=== PATIENT | female | born 1980 | race Caucasian/White ===

== ENCOUNTER → 2017-11-02 | Outpatient (CLI) | payer BC ==
--- NOTE | 2017-11-02 11:49 | US ---
EXAMINATION TYPE: US abdomen complete DATE OF EXAM: 11/02/2017 COMPARISON: NONE CLINICAL HISTORY: Abd Pain R10.9. Intermittent epigastric pain x couple weeks EXAM MEASUREMENTS: Liver Length: 14.0 cm Gallbladder Wall: 0.2 cm CBD: 0.3 cm Spleen: 10.5 cm Right Kidney: 12.0 x 4.3 x 5.9 cm Left Kidney: 11.1 x 5.0 x 5.3 cm Pancreas: visualized portions wnl, head and tail obscured by overlying midline bowel gas Liver: wnl Gallbladder: wnl Evidence for sonographic Panda's sign: yes CBD: visualized portions wnl, limited distally at panc head by overlying bowel gas Spleen: visualized portions wnl, limited by rib shadowing and overlying bowel gas Right Kidney: multiple echogenic foci, largest measuring 0.4cm inferior pole Left Kidney: visualized portions wnl, limited by rib shadowing and overlying bowel gas Upper IVC: wnl Abd Aorta: visualized portions wnl, mid portion obscured by overlying midline bowel gas The liver is homogenous. The intrahepatic portion of the IVC and proximal abdominal aorta are within normal limits. There is no evidence of cholelithiasis. Common bile duct is unremarkable. The visu alized portions of the pancreas are homogenous. The spleen is unremarkable. Kidneys are symmetric a nd free of hydronephrosis. No renal lesions are seen. IMPRESSION: 1. Limited study. Nonobstructing calculi right kidney.
== END | disposition home or self-care (01) ==
LOC: RADUSWWP 10:56
PROVIDERS: ATTEND Family Medicine
DX: N20.0 Calculus of kidney (principal)
CPT/HCPCS: 76700

== ENCOUNTER → 2017-11-17 | Outpatient (CLI) | payer BC ==
--- NOTE | 2017-11-18 19:43 | ECHOF ---
Referral Reason:R01.1 cardiac murmur MEASUREMENTS -------- HEIGHT: 160.0 cm WEIGHT: 72.6 kg BP: 128/62 RVIDd: 3.1 cm (< 3.3) IVSd: 1.0 cm (0.6 - 1.1) LVIDd: 4.7 cm (3.9 - 5.3) LVPWd: 0.9 cm (0.6 - 1.1) IVSs: 1.6 cm LVIDs: 3.1 cm LVPWs: 1.4 cm LA Diam: 3.2 cm (2.7 - 3.8) LAESV Index (A-L): 32.74 ml/m Ao Diam: 3.2 cm (2.0 - 3.7) AV Cusp: 1.9 cm (1.5 - 2.6) MV EXCURSION: 20.022 mm (> 18.000) MV EF SLOPE: 126 mm/s (70 - 150) EPSS: 0.3 cm MV E Tristian: 0.73 m/s MV DecT: 247 ms MV A Tristian: 0.55 m/s MV E/A Ratio: 1.35 RAP: 5.00 mmHg RVSP: 33.21 mmHg FINDINGS -------- Sinus rhythm. This was a technically good study. The left ventricular size is normal. Left ventricular wall thickness is normal. Overall left vent ricular systolic function is normal with, an EF between 60 - 65 %. The right ventricle is normal in size. LA is midly dilated 29-33ml/m2. The right atrium is normal in size. The aortic valve is trileaflet and appears structurally normal. There is trace mitral regurgitation. Mild tricuspid regurgitation present. Right ventricular systolic pressure is normal at < 35 mmHg. There is no pulmonic regurgitation present. The aortic root size is normal. Normal inferior vena cava with normal inspiratory collapse consistent with estimated right atrial pre ssure of 5 mmHg. There is no pericardial effusion. CONCLUSIONS -------- 1. Sinus rhythm. 2. This was a technically good study. 3. The left ventricular size is normal. 4. Left ventricular wall thickness is normal. 5. Overall left ventricular systolic function is normal with, an EF between 60 - 65 %. 6. The right ventricle is normal in size. 7. LA is midly dilated 29-33ml/m2. 8. The right atrium is normal in size. 9. The aortic valve is trileaflet and appears structurally normal. 10. There is trace mitral regurgitation. 11. Mild tricuspid regurgitation present. 12. Right ventricular systolic pressure is normal at < 35 mmHg. 13. There is no pulmonic regurgitation present. 14. The aortic root size is normal. 15. Normal inferior vena cava with normal inspiratory collapse consistent with estimated right atrial pressure of 5 mmHg. 16. There is no pericardial effusion. MOBILITY SCOOTER REPAIRER: Kelly Schwartz RDCS
== END | disposition home or self-care (01) ==
LOC: RADECHMAIN 15:22
PROVIDERS: ATTEND Family Medicine
DX: I08.1 Rheumatic disorders of both mitral and tricuspid valves (principal)
CPT/HCPCS: 93306

== ENCOUNTER → 2017-12-05 | Outpatient (CLI) | payer BC ==
--- NOTE | 2017-12-05 11:08 | MM ---
Reason for exam: screening (asymptomatic). Baseline mammogram. History: Took hormonal contraceptives beginning at age 19. Physical Findings: Nurse did not find any significant physical abnormalities on exam. MG 3D Screening Mammo W/Cad Bilateral CC and MLO view(s) were taken. There are scattered fibroglandular densities. Small global asymmetry posterior superior left breast shows no clear persisting abnormality on 3D images. Precautionary 6 month follow up recommended. Adjacent nodularity likely intramammary lymph node. These results were verbally communicated with the patient and result sheet given to the patient on 12/05/17. ASSESSMENT: Probably benign, BI-RAD 3 RECOMMENDATION: Follow-up diagnostic mammogram of the left breast in 6 months.
== END | disposition home or self-care (01) ==
LOC: RADMAMWWP 10:07
PROVIDERS: ATTEND Obstetrics & Gynecology
DX: Z12.31 Encounter for screening mammogram for malignant neoplasm of breast (principal)
CPT/HCPCS: 77063; 77067

== ENCOUNTER → 2018-06-23 | Outpatient (CLI) | payer BC ==
--- NOTE | 2018-06-23 12:06 | MM ---
Reason for exam: follow-up at short interval from prior study. Last mammogram was performed 7 months ago. History: Took hormonal contraceptives beginning at age 19. Physical Findings: Nurse Summary: 1cm nodule in the left breast at 10 o'clock (nurse mj). MG 3D Diag Mammo W/Cad LT CC and MLO view(s) were taken of the left breast. Prior study comparison: December 05, 2017, bilateral MG 3d screening mammo w/cad. There are scattered fibroglandular densities. There is no discrete abnormality including area of concern. No significant new findings when compared with previous films. These results were verbally communicated with the patient and result sheet given to the patient on 06/23/18. ASSESSMENT: Incomplete: need additional imaging evaluation, BI-RAD 0 RECOMMENDATION: Ultrasound of the left breast.
--- NOTE | 2018-06-23 12:08 | USB ---
Reason for exam: additional evaluation requested from abnormal screening. History: Took hormonal contraceptives beginning at age 19. US Breast Limited LT Technologist: Susan Dempsey RT (R)(M) Left limited breast ultrasound including focal area of concern, retroareolar and axilla demonstrates no cystic or solid lesion seen. These results were verbally communicated with the patient and result sheet given to the patient on 06/23/18. ASSESSMENT: Negative, BI-RAD 1 RECOMMENDATION: Routine screening mammogram of both breasts in 1 year.
== END | disposition home or self-care (01) ==
LOC: RADMAMWWP 10:42
PROVIDERS: ATTEND Obstetrics & Gynecology
DX: R92.8 Other abnormal and inconclusive findings on diagnostic imaging of breast (principal)
CPT/HCPCS: 77061; 77065

== ENCOUNTER → 2018-12-07 | Outpatient (CLI) | payer BC ==
--- NOTE | 2018-12-07 19:24 | ECHOF ---
Referral Reason:R07.89 atypcial chest pain MEASUREMENTS -------- HEIGHT: 162.6 cm WEIGHT: 68.0 kg BP: 106/56 RVIDd: 3.1 cm (< 3.3) IVSd: 1.0 cm (0.6 - 1.1) LVIDd: 4.8 cm (3.9 - 5.3) LVPWd: 0.9 cm (0.6 - 1.1) IVSs: 1.4 cm LVIDs: 3.1 cm LVPWs: 1.6 cm LA Diam: 3.2 cm (2.7 - 3.8) LAESV Index (A-L): 24.14 ml/m Ao Diam: 3.0 cm (2.0 - 3.7) AV Cusp: 2.0 cm (1.5 - 2.6) MV EXCURSION: 17.918 mm (> 18.000) MV EF SLOPE: 169 mm/s (70 - 150) EPSS: 0.3 cm MV E Tristian: 0.83 m/s MV DecT: 242 ms MV A Tristian: 0.56 m/s MV E/A Ratio: 1.48 RAP: 5.00 mmHg RVSP: 24.76 mmHg FINDINGS -------- Sinus rhythm. This was a technically good study. The left ventricular size is normal. Left ventricular wall thickness is normal. Overall left vent ricular systolic function is normal with, an EF between 60 - 65 %. The right ventricle is normal in size. Normal LA size by volume 22+/-6 ml/m2. The right atrium is normal in size. The aortic valve is trileaflet and appears structurally normal. Mild mitral regurgitation is present. Mild tricuspid regurgitation present. Right ventricular systolic pressure is normal at < 35 mmHg. Trace/mild (physiologic) pulmonic regurgitation. The aortic root size is normal. Normal inferior vena cava with normal inspiratory collapse consistent with estimated right atrial pre ssure of 5 mmHg. There is no pericardial effusion. CONCLUSIONS -------- 1. Sinus rhythm. 2. This was a technically good study. 3. The left ventricular size is normal. 4. Left ventricular wall thickness is normal. 5. Overall left ventricular systolic function is normal with, an EF between 60 - 65 %. 6. The right ventricle is normal in size. 7. Normal LA size by volume 22+/-6 ml/m2. 8. The right atrium is normal in size. 9. The aortic valve is trileaflet and appears structurally normal. 10. Mild mitral regurgitation is present. 11. Mild tricuspid regurgitation present. 12. Right ventricular systolic pressure is normal at < 35 mmHg. 13. Trace/mild (physiologic) pulmonic regurgitation. 14. The aortic root size is normal. 15. Normal inferior vena cava with normal inspiratory collapse consistent with estimated right atrial pressure of 5 mmHg. 16. There is no pericardial effusion. PROPERTY MANAGEMENT INTERN: Kelly Schwartz RDCS
== END | disposition home or self-care (01) ==
LOC: RADECHMAIN 14:49
PROVIDERS: ATTEND Family Medicine
DX: I08.1 Rheumatic disorders of both mitral and tricuspid valves (principal); R07.89 Other chest pain
CPT/HCPCS: 93306

== ENCOUNTER → 2019-10-19 | Outpatient (CLI) | payer BC ==
--- NOTE | 2019-10-22 09:45 | MM ---
Reason for exam: screening (asymptomatic). Last mammogram was performed 1 year and 4 months ago. History: Took hormonal contraceptives beginning at age 19. Physical Findings: A clinical breast exam by your physician is recommended on an annual basis and results should be correlated with mammographic findings. MG 3D Screening Mammo W/Cad Bilateral CC and MLO view(s) were taken. Prior study comparison: June 23, 2018, left breast MG 3d diag mammo w/cad LT. December 05, 2017, bilateral MG 3d screening mammo w/cad. The breast tissue is heterogeneously dense. This may lower the sensitivity of mammography. There is no discrete abnormality. No significant changes when compared with prior studies. ASSESSMENT: Negative, BI-RAD 1 RECOMMENDATION: Routine screening mammogram of both breasts at age 41.
== END | disposition home or self-care (01) ==
LOC: RADMAMWWP 09:16
PROVIDERS: ATTEND Obstetrics & Gynecology
DX: Z12.31 Encounter for screening mammogram for malignant neoplasm of breast (principal)
CPT/HCPCS: 77063; 77067

== ENCOUNTER → 2021-05-13 | Outpatient (CLI) | payer BC ==
--- NOTE | 2021-05-15 14:28 | MM ---
Reason for exam: screening (asymptomatic). Last mammogram was performed 1 year and 7 months ago. History: Patient is nulliparous. Took hormonal contraceptives beginning at age 19. Physical Findings: A clinical breast exam by your physician is recommended on an annual basis and results should be correlated with mammographic findings. MG 3D Screening Mammo W/Cad Bilateral CC and MLO view(s) were taken. Prior study comparison: October 19, 2019, bilateral MG 3d screening mammo w/cad. June 23, 2018, left breast MG 3d diag mammo w/cad LT. There are scattered fibroglandular densities. No significant changes when compared with prior studies. ASSESSMENT: Negative, BI-RAD 1 RECOMMENDATION: Routine screening mammogram of both breasts in 1 year.
== END | disposition home or self-care (01) ==
LOC: RADMAMWWP 16:02
PROVIDERS: ATTEND Obstetrics & Gynecology
DX: Z12.31 Encounter for screening mammogram for malignant neoplasm of breast (principal); Z79.3 Long term (current) use of hormonal contraceptives
CPT/HCPCS: 77063; 77067

== ENCOUNTER → 2022-03-23 | Outpatient (CLI) | payer BC ==
[2022-03-23 14:20] LABS: Chol/HDL Ratio 2.98 Ratio; LDL Cholesterol,Calculated 91.4 mg/dL (0.0-131.0)
== END | disposition home or self-care (01) ==
LOC: LABWHC1 07:39
PROVIDERS: ATTEND Obstetrics & Gynecology
DX: Z13.220 Encounter for screening for lipoid disorders (principal)
CPT/HCPCS: 36415; 80061

== ENCOUNTER → 2022-05-19 | Outpatient (CLI) | payer BC ==
--- NOTE | 2022-05-21 18:47 | MM ---
Reason for Exam: Screening (asymptomatic). Last screening mammogram was performed 12 month(s) ago. Patient History: Menarche at age 13. Patient has no children. Hormonal Contraceptives, from age 19 until age 31. Risk Values: Valeria 5 year model risk: 0.7%. NCI Lifetime model risk: 11.0%. Prior Study Comparison: 06/23/2018 Left Diagnostic Mammogram, [facility]. 10/19/2019 Bilateral Screening Mammogram, [facility]. 05/13/2021 Bilateral Screening Mammogram, [facility]. Tissue Density: There are scattered fibroglandular densities. Findings: Analyzed By CAD. There is no suspicious group of microcalcifications or new suspicious mass in either breast. Overall Assessment: Negative, BI-RAD 1 Management: Screening Mammogram of both breasts in 1 year. A clinical breast exam by your physician is recommended on an annual basis and results should be correlated with mammographic findings. Electronically signed and approved by: Dusty Haji DO
== END | disposition home or self-care (01) ==
LOC: RADMAMWWP 12:33
PROVIDERS: ATTEND Obstetrics & Gynecology
DX: Z12.31 Encounter for screening mammogram for malignant neoplasm of breast (principal)
CPT/HCPCS: 77063; 77067

== ENCOUNTER → 2023-04-07 | Outpatient (CLI) | payer BC ==
[2023-04-07 17:12] LABS: Chol/HDL Ratio 2.53 Ratio; LDL Cholesterol,Calculated 101.6 mg/dL (0.0-131.0); VLDL Calculation 18.08 mg/dL (5.00-40.00)
== END | disposition home or self-care (01) ==
LOC: LABWHC1 07:41
PROVIDERS: ATTEND Obstetrics & Gynecology
DX: Z13.220 Encounter for screening for lipoid disorders (principal)
CPT/HCPCS: 36415; 80061

== ENCOUNTER 2023-07-07 06:10 | Day surgery (SDC) | payer BC ==
--- NOTE | 2023-07-06 17:51 | P.HPOB ---
History of Present Illness H&P Date: 07/06/23 Chief Complaint: Menorrhagia This patient is a pleasant 43-year-old 0 para 0 female who is presenting for endometrial ablation secondary to persistent menorrhagia. Patient's evaluation has included an ultrasound which was normal with the exception of small fibroids and endometrial lining of the 0.55 cm. Her is had a vasectomy and they do not desire any children. She does not want hormonal methods for controlling her bleeding. She is requesting endometrial ablation at this time. Review of Systems Genitourinary: Reports menorrhagia Menstruation: Reports period heavy Past Medical History Past Medical History: Seizure Disorder Additional Past Medical History / Comment(s): last seizure-2009 History of Any Multi-Drug Resistant Organisms: None Reported Past Surgical History: Adenoidectomy, Tonsillectomy Additional Past Surgical History / Comment(s): EGD. WISDOM TEETH PULLED UNDER ANESTHESIA Past Anesthesia/Blood Transfusion Reactions: No Reported Reaction, Postoperative Nausea & Vomiting (PONV) Past Psychological History: No Psychological Hx Reported Smoking Status: Former smoker Past Alcohol Use History: None Reported Past Drug Use History: None Reported - Past Family History Father Family Medical History: Cancer Mother Family Medical History: CVA/TIA Medications and Allergies Home Medications Medication Instructions Recorded Confirmed Type levETIRAcetam [Keppra Xr] 750 mg PO BID 03/11/16 07/05/23 History Allergies Allergy/AdvReac Type Severity Reaction Status Date / Time No Known Allergies Allergy Verified 07/05/23 11:14 Exam - OBG Physical Exam Abdomen: bowel sounds normal, no diffuse tenderness, no bruit present, no guarding noted, no hepatomegaly, no splenomegaly, no mass Vulva: both: normal Vagina: normal moisture, no discharge Cervix: no lesion, no discharge Uterus: normal size, normal contour Adnexa: both: normal Results Patient had an ultrasound done that showed a normal endometrial thickness of 0.55 cm. Assessment and Plan Assessment: This is a pleasant 43-year-old 0 para 0 female with long-standing menorrhagia and negative evaluation. Patient is requesting endometrial ablation for treatment. Plan is hysteroscopy, D&C, and NovaSure endometrial ablation. We discussed the surgery and risks and risks of infection, bleeding, possible uterine perforation, and/or thermal injury. All the patient's questions are answered and a written consent is obtained. (1) Menorrhagia Status: Chronic Code(s): N92.0 - EXCESSIVE AND FREQUENT MENSTRUATION WITH REGULAR CYCLE SNOMED Code(s): 863464293
[~2023-07-07 06:10] MED LIST: DEXAMETHASONE SOD PHOSPHATE 4 MG/ML 1 ML VIAL IV ONE; HYDROmorphone 0.5 MG/0.5 ML SYRINGE IVP PRN; LACTATED RINGERS 1,000 ML IV SCH; LIDOCAINE 1% (10MG/ML) FOR IV START INTRADERMA PRN; MIDAZOLAM 2 MG/2 ML VIAL IV PRN; ONDANSETRON 4 MG/2 ML VIAL IVP ONE; Pre Op ABX Message 1 EACH MISC MISCELLANE ONE
[2023-07-07 07:18] VITALS: RESP 16
[2023-07-07] MEDS ORDERED: KETOROLAC 15 MG/ML 1 ML VIAL ONE (07:20)
[2023-07-07] MEDS ORDERED: PROPOFOL 10 MG/ML 20 ML VIAL IV ONE (07:20)
[2023-07-07] MEDS ORDERED: MIDAZOLAM 2 MG/2 ML VIAL ONE (07:20)
[2023-07-07] MEDS ORDERED: LIDOCAINE 1% INJ 10MG/ML (20 ML MDV) ONE (07:20)
[2023-07-07] MEDS ORDERED: fentaNYL (PF) 50 MCG/ML 2 ML AMP ONE (07:20)
--- NOTE | 2023-07-07 08:01 | P.OP ---
Date of Procedure: 07/07/23 Preoperative Diagnosis: Menorrhagia Postoperative Diagnosis: Same Procedure(s) Performed: #1: Hysteroscopy. #2: Dilation and curettage. #3: NovaSure endometrial ablation Anesthesia: MAC Surgeon: Scott Medina Estimated Blood Loss (ml): 10 Urine output (ml): 20 Pathology: other (Uterine curettings) Condition: stable Disposition: PACU Indications for Procedure: Please see dictated H&P for intimate details of this patient's admission. In brief summary this is a pleasant 43-year-old female with long-standing menorrhagia requesting NovaSure endometrial ablation for treatment. Patient understands this procedure and risks and risks of infection, bleeding, possible uterine perforation, and/or thermal injury. All the patient's questions are answered and a written consent is obtained. Operative Findings: This patient normal appearing endometrial cavity Description of Procedure: This patient is taken to the operating room where she is laid in the supine position. She subsequently undergoes general mask anesthesia without incident. With an adequate level of anesthesia she's placed in dorsal lithotomy position. She has a vaginal perineal prep and drape. Examination under anesthesia shows a mid position uterus of normal size. Weighted speculum was placed posterior vagina. The bladder is drained for 20 mL of clear urine. I then place an Allis clamp on the anterior lip of the cervix. Uterus is then gently sounded to 8 cm. Gentle dilation of the cervix is then done to allow the hysteroscope easily uterine cavity. Uterine cavity is visualized and appears normal is measured a length of 6.0 cm. With this done the hysteroscope was removed. Cervix is dilated slightly more to allow a small curette easily and the uterine cavity. A gentle but thorough 4 quadrant curettage is then done. The NovaSure device is then placed at a length of 6 cm and seated in place and opens up to a width of 3.5 cm. After passing the cavity integrity test the NovaSure device is then enabled at 116 W setting for 73 seconds. The NovaSure device is then removed and appears to be intact. The hysteroscopy is then performed again and the cavity appears to completely ablated up to the endocervix. Excellent results are noted. The procedure is then ended. The Allis clamp and weighted speculum removed. All counts are correct 3. There are no complications. Patient is awakened from anesthesia and taken recovery room satisfactory condition.
[2023-07-07 08:04] VITALS: TEMP 97
[2023-07-07 09:12] VITALS: BP 111/73; PULSE 56
== END 2023-07-07 09:14 | disposition home or self-care (01) ==
LOC: OR 06:10
PROVIDERS: ATTEND Obstetrics & Gynecology
DX: N85.8 Other specified noninflammatory disorders of uterus (principal); D25.9 Leiomyoma of uterus, unspecified; G40.909 Epilepsy, unspecified, not intractable, without status epilepticus; Z87.891 Personal history of nicotine dependence; Z79.899 Other long term (current) drug therapy
CPT/HCPCS: 58563; 81025; 88305; J2250; J1100; J2405; J2001; J3010; J1885; J2704

== ENCOUNTER → 2023-07-22 | Outpatient (CLI) | payer BC ==
--- NOTE | 2023-07-25 08:50 | MM ---
Reason for Exam: Screening (asymptomatic). Last mammogram was performed 1 year(s) and 2 month(s) ago. Patient History: Menarche at age 13. Patient has no children. Hormonal Contraceptives, from age 19 until age 31. Risk Values: Valeria 5 year model risk: 0.7%. NCI Lifetime model risk: 10.9%. Prior Study Comparison: 12/05/2017 Bilateral Screening Mammogram, [facility]. 06/23/2018 Left Diagnostic Mammogram, [facility]. 10/19/2019 Bilateral Screening Mammogram, [facility]. 05/13/2021 Bilateral Screening Mammogram, [facility]. 05/19/2022 Bilateral MG 3D screening mammo w/cad, [facility]. Tissue Density: There are scattered fibroglandular densities. Findings: Analyzed By CAD. There is no suspicious group of microcalcifications or new suspicious mass. Overall Assessment: Negative, BI-RAD 1 Management: Screening Mammogram of both breasts in [address] [facility] will attempt to contact patient to return for supplemental views and ultrasound if indicated. Patient should continue monthly self-breast exams. A clinical breast exam by your physician is recommended on an annual basis. This exam should not preclude additional follow-up of suspicious palpable abnormalities. Note on Valeria scores and lifetime risk: 1. A Valeria score greater than 3% is considered moderate risk. If this is the case, consider specialist referral to assess eligibility for a risk reducing agent. 2. If overall lifetime risk for the development of breast cancer is 20% or higher, the patient may qualify for future screening with alternating mammogram and breast MRI. Electronically signed and approved by: Dusty Haji DO
== END | disposition home or self-care (01) ==
LOC: RADMAMWWP 13:46
PROVIDERS: ATTEND Obstetrics & Gynecology
DX: Z12.31 Encounter for screening mammogram for malignant neoplasm of breast (principal)
CPT/HCPCS: 77063; 77067

== ENCOUNTER → 2024-08-07 | Outpatient (CLI) | payer BC ==
--- NOTE | 2024-08-07 15:32 | CA ---
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 67 - 155 / 56 - 104 cm??? LV Systolic Volume MOD BP 45.0 cm??? 22 - 58 / 19 - 49 cm??? LV Ejection Fraction MOD BP 62.4 % >= 55 % LV Cardiac Index MOD BP 2937.4 cm???/min???m??? LV Diastolic Volume MOD 4C 113.5 cm??? LV Systolic Volume MOD 4C 47.9 cm??? LV Ejection Fraction MOD 4C 57.8 % LV Cardiac Index MOD 4C 2582.2 cm???/min???m??? LV Diastolic Length 4C 8.2 cm LV Systolic Length 4C 6.7 cm LV Diastolic Volume MOD 2C 120.4 cm??? LV Systolic Volume MOD 2C 41.7 cm??? LV Ejection Fraction MOD 2C 65.4 % LV Cardiac Index MOD 2C 3100.9 cm???/min???m??? LV Diastolic Length 2C 8.6 cm LV Systolic Length 2C 6.8 cm LA Volume 43.9 cm??? 18 - 58 / 22 - 52 cm??? LA Volume Index 24.0 cm???/m??? 16 - 28 cm???/m??? Ascending Aorta Diameter 2.8 cm DOPPLER AV Peak Velocity 183.2 cm/s AV Peak Gradient 13.4 mmHg AV Mean Velocity 128.3 cm/s AV Mean Gradient 7.1 mmHg AV Velocity Time Integral 35.2 cm LVOT Peak Velocity 120.9 cm/s LVOT Peak Gradient 5.9 mmHg LVOT Velocity Time Integral 22.9 cm LVOT Stroke Volume 57.4 cm??? LVOT Stroke Volume Index 32.3 ml/m??? LVOT Cardiac Index 2261.2 cm???/min???m??? AV Area Cont Eq vti 1.6 cm??? AV Area Cont Eq pk 1.7 cm??? MV Area PHT 4.1 cm??? Mitral E Point Velocity 49.7 cm/s Mitral A Point Velocity 43.5 cm/s Mitral E to A Ratio 1.1 MV Deceleration Time 187.0 ms TR Peak Velocity 233.1 cm/s TR Peak Gradient 21.7 mmHg Right Atrial Pressure 5.0 mmHg Pulmonary Artery Systolic Pressu 26.7 mmHg Right Ventricular Systolic Press 26.7 mmHg PV Peak Velocity 105.1 cm/s PV Peak Gradient 4.4 mmHg FINDINGS Left Ventricle Left ventricular ejection fraction is estimated at 55-60 %. Left ventricular cavity size normal. Left ventricular wall thickness normal. No obvious regional wall motion abnormalities. Right Ventricle Normal right ventricular size and function. Right ventricular systolic pressure within normal limits. Right Atrium Normal right atrial size. Left Atrium Normal left atrial size. Mitral Valve Structurally normal mitral valve. No evidence for mitral valve prolapse. No mitral stenosis. Trace mitral regurgitation. Aortic Valve Trileaflet aortic valve. No aortic valve stenosis or regurgitation. Tricuspid Valve Structurally normal tricuspid valve. No tricuspid stenosis. Mild tricuspid regurgitation. Pulmonic Valve Structurally normal pulmonic valve. No pulmonic stenosis. Trace pulmonic regurgitation. Pericardium No pericardial effusion. Aorta Normal size aortic root and proximal ascending aorta. CONCLUSIONS Left ventricular ejection fraction 55-60% Trace mitral regurgitation Mild tricuspid regurgitation No pericardial effusion Previewed by: Dr. Dimitry Jenkins DO (Electronically Signed) Final Date: 07 August 2024 15:31
== END | disposition home or self-care (01) ==
LOC: RADECHMAIN 13:49
PROVIDERS: ATTEND Internal Medicine
DX: I35.8 Other nonrheumatic aortic valve disorders (principal); I08.1 Rheumatic disorders of both mitral and tricuspid valves; I37.1 Nonrheumatic pulmonary valve insufficiency
CPT/HCPCS: 93306

== ENCOUNTER → 2024-08-10 | Outpatient (CLI) | payer BC ==
--- NOTE | 2024-08-13 11:27 | MM ---
Reason for Exam: Screening (asymptomatic). Last mammogram was performed 1 year(s) and 1 month(s) ago. Patient History: Menarche at age 13. Patient has no children. Hormonal Contraceptives, from age 19 until age 31. Risk Values: Valeria 5 year model risk: 0.8%. NCI Lifetime model risk: 10.8%. Prior Study Comparison: 05/13/2021 Bilateral Screening Mammogram, [facility]. 05/19/2022 Bilateral MG 3D screening mammo w/cad, [facility]. 07/22/2023 Bilateral MG 3D screening mammo w/cad, [facility]. Tissue Density: There are scattered areas of fibroglandular density. Findings: Analyzed By CAD. Right breast: There is no suspicious group of microcalcifications or new suspicious mass. Left breast: There is no suspicious group of microcalcifications or new suspicious mass. Overall Assessment: Negative, BI-RAD 1 Management: Screening Mammogram of both breasts in [address] [facility] will attempt to contact patient to return for supplemental views and ultrasound if indicated. Patient should continue monthly self-breast exams. A clinical breast exam by your physician is recommended on an annual basis. This exam should not preclude additional follow-up of suspicious palpable abnormalities. Note on Valeria scores and lifetime risk: 1. A Valeria score greater than 3% is considered moderate risk. If this is the case, consider specialist referral to assess eligibility for a risk reducing agent. 2. If overall lifetime risk for the development of breast cancer is 20% or higher, the patient may qualify for future screening with alternating mammogram and breast MRI. [facility], , 08/13/2024 11:24 AM. Electronically signed and approved by: Dusty Haji DO
== END | disposition home or self-care (01) ==
LOC: RADMAMWWP 07:13
PROVIDERS: ATTEND Obstetrics & Gynecology
DX: Z12.31 Encounter for screening mammogram for malignant neoplasm of breast (principal); R92.323 Mammographic fibroglandular density, bilateral breasts
CPT/HCPCS: 77063; 77067

== ENCOUNTER → 2024-09-26 | Outpatient (CLI) | payer BC ==
[2024-09-26 10:13] LABS: Basophils # (A) 0.02 X 10*3/uL (0.00-0.10); Basophils % (A) 0.5 %; Eosinophils # (A) 0.04 X 10*3/uL (0.04-0.35); HCT 43.1 % (37.2-46.3); HGB 14.1 g/dL (12.0-15.0); Immature Grans, Automated 0 %; Lymphocytes # (A) 1.56 X 10*3/uL (0.90-5.00); Lymphocytes % (A) 37.4 %; MCH 30.4 pg (27.0-32.0); MCHC 32.7 g/dL (32.0-37.0); MCV 92.9 FL (80.0-97.0); Mean Platelet Volume 10.3 FL (9.5-12.2); Monocytes # (A) 0.38 X 10*3/uL (0.20-1.00); Monocytes % (A) 9.1 %; NRBC Per 100 WBC 0 X 10*3/uL (0.00-0.01); Neutrophils # (A) 2.17 X 10*3/uL (1.80-7.70); Platelet Count 278 X 10*3/uL (140-440); RBC 4.64 X 10*6/uL (4.10-5.20); RDW 11.6 % (11.5-14.5); WBC 4.17 X 10*3/uL (4.50-10.00)
[2024-09-26 10:35] LABS: ALT 15 U/L (8-44); AST 19 U/L (13-35); Albumin 4.4 g/dL (3.8-4.9); Alkaline Phosphatase 59 U/L (41-126); BUN/Creat Ratio 22.33 Ratio (12.00-20.00); Blood Urea Nitrogen 13.4 mg/dL (9.0-27.0); Calcium 9.5 mg/dL (8.7-10.3); Carbon Dioxide 25.3 mmol/L (21.6-31.8); Chloride 106 mmol/L (96-109); Chol/HDL Ratio 2.79 Ratio; Globulin 2.2 g/dL (1.6-3.3); Glucose 81 mg/dL (70-110); LDL Cholesterol,Calculated 98.6 mg/dL (0.0-131.0); Potassium 4.9 mmol/L (3.5-5.5); Sodium 139 mmol/L (135-145); Total Bilirubin 0.3 mg/dL (0.3-1.2); Total Protein 6.6 g/dL (6.2-8.2); VLDL Calculation 17.64 mg/dL (5.00-40.00)
== END | disposition home or self-care (01) ==
LOC: LABWHC1 06:56
PROVIDERS: ATTEND Internal Medicine
DX: Z00.00 Encounter for general adult medical examination without abnormal findings (principal); R56.9 Unspecified convulsions
CPT/HCPCS: 36415; 80053; 80061; 80177; 84443; 85025